=== PATIENT | male | born 1985 | race Caucasian/White ===

== ENCOUNTER 2018-02-01 13:57 | Emergency (ER) | payer OTHER ==
[2018-02-01 14:05] VITALS: BP 130/85
--- NOTE | 2018-02-01 14:08 | UC ---
Throat Pain/Nasal Anil HPI - HPI Summary HPI Summary: 32 y/o male presents to the urgent care c/o sore throat for the past 2 days. Pt states his son was Dx w/ strep this morning. Pain w/ swallowing is 4/10. He has taking Ibuprofen PO 600mg PO to alleviate symptoms. Pt also states chills, mild nasal congestion w/ clear nasal discharge and a dry cough. Pt denies fever , SOB, chest pain, abdominal pain, N/V/D. - History of Current Complaint Chief Complaint: UCRespiratory Stated Complaint: SORE THROAT Time Seen by Provider: 02/01/18 14:06 Hx Obtained From: Patient Onset/Duration: Gradual Onset, Lasting Days - 2 days, Still Present, Worse Since - today Severity: Moderate Pain Intensity: 4 Pain Scale Used: 0-10 Numeric Cough: Nonproductive Associated Signs & Symptoms: Positive: Dysphagia, Nasal Discharge - clear, Other - dry cough. Negative: Fever - Epiglottits Risk Factors Epiglottis Risk Factors: Negative - Allergies/Home Medications Allergies/Adverse Reactions: Allergies Allergy/AdvReac Type Severity Reaction Status Date / Time No Known Allergies Allergy Verified 02/01/18 14:05 PMH/Surg Hx/FS Hx/Imm Hx Previously Healthy: Yes - Pt denies PMHX - Surgical History Surgical History: None - Family History Known Family History: Positive: None - Pt denies FMHX - Social History Occupation: Employed Full-time Lives: With Family Alcohol Use: None Substance Use Type: None Smoking Status (MU): Heavy Every Day Tobacco Smoker Amount Used/How Often: 8/day Review of Systems Constitutional: Chills Skin: Negative Eyes: Negative ENT: Sore Throat, Nasal Discharge, Sinus Congestion Respiratory: Cough - dry Cardiovascular: Negative Gastrointestinal: Negative Genitourinary: Negative Motor: Negative Neurovascular: Negative Musculoskeletal: Negative Neurological: Negative Psychological: Negative Is Patient Immunocompromised?: No All Other Systems Reviewed And Are Negative: Yes Physical Exam - Summary Physical Exam Summary: VITAL SIGNS: Reviewed. GENERAL: Patient is a well developed and nourished male who is sitting comfortable in the examining table. Patient is not in any acute respiratory distress. HEAD AND FACE: No signs of trauma. No ecchymosis, hematomas or skull depressions. No sinus tenderness. EYES: PERRLA, EOMI x 2, No injected conjunctiva, no nystagmus. No photophobia. EARS: Hearing grossly intact. Ear canals and tympanic membranes are within normal limits. MOUTH: Positive pharynx with erythema, exudates, palatal petechiae. B/L tonsillar enlargement with exudate. Uvula in midline. NECK: Supple, trachea is midline, Positive anterior cervical lymphadenopathy, no JVD, no carotid bruit, no c-spine tenderness, neck with full ROM. No meningeal signs, no Kernig's or brudzinskis signs. CHEST: Symmetric, no tenderness at palpation LUNGS: Clear to auscultation bilaterally. No wheezing or crackles. CVS: Regular rate and rhythm, S1 and S2 present, no murmurs or gallops appreciated. ABDOMEN: Soft, non-tender. No signs of distention. No rebound no guarding, and no masses palpated. Bowel sounds are normal. EXTREMITIES: FROM in all major joints, no edema, no cyanosis or clubbing. NEURO: Alert and oriented x 3. No acute neurological deficits. Speech is normal and follows commands. SKIN: Dry and warm Triage Information Reviewed: Yes Vital Signs: Initial Vital Signs Temp 98.3 F 02/01/18 14:03 Pulse 66 02/01/18 14:03 Resp 18 02/01/18 14:03 BP 130/85 02/01/18 14:03 Pulse Ox 99 02/01/18 14:03 Throat Pain/Nasal Course/Dx - Course Course Of Treatment: 32 y/o male presents to the urgent care c/o sore throat for the past 2 days. Pt states his son was Dx w/ strep this morning. Pain w/ swallowing is 4/10. He has taking Ibuprofen PO 600mg PO to alleviate symptoms. Pt also states chills, mild nasal congestion w/ clear nasal discharge and a dry cough. Pt denies fever, SOB, chest pain, abdominal pain, N/V/D.Hx obtained. Pt w / pharyngitis on examination. Rapid strep ordered: result: negative. Viral pharyngitis. Rx Ibuprofen PO for pain and swelling. PT Advised on hand washing to avoid spreading. Also advised to rest, eat well and avoid strenuous exercise. If symptoms do not improve or worsen advised to return to the urgent care or f/u with PCP for further evaluation and treatment. PT understood and agreed - Differential Dx/Diagnosis Differential Diagnosis/HQI/PQRI: Laryngitis, Mononucleosis, Pharyngitis, Sinusitis, Tonsillitis, URI Provider Diagnoses: 1- Viral pharyngtis Discharge - Sign-Out/Discharge Documenting (check all that apply): Discharge/Admit/Transfer - D/C home - Discharge Plan Condition: Stable Disposition: HOME Prescriptions: Ibuprofen TAB* [Motrin TAB* 600 MG] 600 mg PO Q6H PRN #30 tab PRN Reason: Sore Throat Patient Education Materials: Pharyngitis (ED) Forms: *Work Release Referrals: [facility] [place] [facility] [Outside] - 3 Days Additional Instructions: 1-Please take ibuprofen PO q6-8hrs prn as instructed after meals to alleviate pain and swelling. Increase fluid intake, eat well, rest and avoid strenuous exercise. Encourage hand washing. 2-If symptoms do not improve or worsen please return to the urgent care or f/u with your PCP 2- 3 days for further evaluation and treatment. - Billing Disposition and Condition Condition: STABLE Disposition: Home
== END 2018-02-01 14:35 | disposition home or self-care (01) ==
LOC: UCEAST 13:57
DX: J02.8 Acute pharyngitis due to other specified organisms (principal); J34.89 Other specified disorders of nose and nasal sinuses; F17.210 Nicotine dependence, cigarettes, uncomplicated
CPT/HCPCS: 87651; 99212; G0463

== ENCOUNTER 2018-06-11 13:41 | Emergency (ER) | payer OTHER ==
[2018-06-11 13:48] VITALS: BP 141/80
--- NOTE | 2018-06-11 14:16 | UC ---
Respiratory Complaint HPI - HPI Summary HPI Summary: 32 y/o male presents to the urgent care c/o cough, cold symptoms for two weeks, left ear plugged for a week - feels dizzy at times because of his ear. afebrile. sometimes feels chest congestion at night. some productive - History of Current Complaint Chief Complaint: UCRespiratory Stated Complaint: RESP COMPLAINT Time Seen by Provider: 06/11/18 14:09 Hx Obtained From: Patient Onset/Duration: Gradual Onset, Lasting Weeks - 2 weeks, Still Present, Worse Since - 2 days Timing: Constant Severity Initially: Mild Severity Currently: Moderate Pain Intensity: 6 - touch Pain Scale Used: 0-10 Numeric Character: Cough: Nonproductive Aggravating Factors: Recumbent Position Alleviating Factors: OTC Meds Associated Signs And Symptoms: Positive: URI, Nasal Congestion, Sinus Discomfort. Negative: Fever, Chills - Risk Factors Pulmonary Embolism Risk Factors: Negative Cardiac Risk Factors: Negative Pseudomonas Risk Factors: Negative Tuberculosis Risk Factors: Negative - Allergies/Home Medications Allergies/Adverse Reactions: Allergies Allergy/AdvReac Type Severity Reaction Status Date / Time No Known Allergies Allergy Verified 06/11/18 13:48 Home Medications: Home Medications D-Methorphan/PE/Acetaminophen [Day Time Cold-Flu Liquid] 1 dose PO ONCE PRN [History Confirmed 06/11/18] PMH/Surg Hx/FS Hx/Imm Hx Previously Healthy: Yes - Pt denies PMHX - Surgical History Surgical History: None - Family History Known Family History: Positive: None - Pt denies FMHX - Social History Occupation: Employed Full-time Lives: With Family Alcohol Use: None Substance Use Type: None Smoking Status (MU): Heavy Every Day Tobacco Smoker Amount Used/How Often: 8/day Household Exposure Type: Cigarettes Review of Systems Constitutional: Negative Skin: Negative Eyes: Negative ENT: Ear Ache - left ear pain, Nasal Discharge - green, Sinus Congestion - green , Sinus Pain/Tenderness, Other - +PND Respiratory: Cough - cough Cardiovascular: Negative Gastrointestinal: Negative Genitourinary: Negative Motor: Negative Neurovascular: Negative Musculoskeletal: Negative Neurological: Negative Psychological: Negative Is Patient Immunocompromised?: No All Other Systems Reviewed And Are Negative: Yes Physical Exam - Summary Physical Exam Summary: Vitals: reviewed General: Well developed, well-nourished male patient with NAD. Head and face: Normocephalic and atraumatic, Positive tenderness over the frontal and maxillary sinuses.. Eyes: PERRLA, EOMI x 2. Normal conjunctiva. No eye discharge. ENT: B/L external ear canal impacted w/ cerumen unable to visualize TM's Nose: edematous and erythematous nasal mucosa with with yellowish discharge and erythematous mucosa. Pharynx with erythema, no exudate. Neck: Supple, no JVD, no carotid bruits and no lymphadenopathy. Lungs: clear, no rales, no rhonchi, no wheezes. CVS: RRR, S1 and S2 present no murmurs or gallops appreciated. Abdomen: soft nontender with positive bowel sounds. Extremities: no edema noted. Neuro: WNL. Skin: warm and dry Triage Information Reviewed: Yes Vital Signs: Initial Vital Signs Temp 99.2 F 06/11/18 13:45 Pulse 75 06/11/18 13:45 Resp 20 06/11/18 13:45 BP 141/80 06/11/18 13:45 Pulse Ox 100 06/11/18 13:45 UC Diagnostic Evaluation - Laboratory O2 Sat by Pulse Oximetry: 100 Respiratory Course/Dx - Differential Dx/Diagnosis Differential Diagnosis/HQI/PQRI: Bronchitis, Influenza, Laryngitis, Sinusitis, Other - otitits media or externa, Cerume impaction Provider Diagnoses: 1- Acute bacterial sinusitis. 2- B/L ear Cerumen Impaction. 3-Left otitis Media. 4- Elevated BP w/o Hx of HTN Discharge - Sign-Out/Discharge Documenting (check all that apply): Patient Departure - D/c home All imaging exams completed and their final reports reviewed: No Studies - Discharge Plan Condition: Stable Disposition: HOME Prescriptions: Amoxicillin/Clavulanate TAB* [Augmentin TAB 875*] 875 mg PO BID #20 tab Fluticasone NASAL SPRAY 50MCG* [Flonase NASAL SPRAY 50MCG*] 2 spray BOTH NARES DAILY #1 btl Patient Education Materials: Sinusitis (ED), Ear Infection (ED), Low-Sodium Diet (ED) Forms: *Work Release Referrals: [facility] [place] [facility] [Outside] - 3 Days Additional Instructions: 1- Please increase fluid intake and rest. take full course of antibiotic to avoid resistance 2-Use Flonase as directed to help drain fluid. Also buy saline drops to clear sinuses 3-Return to the clinic or PCP in 3 days if symptoms do not improve for further management and treatment 4-Your BP is elevated today. please decrease salt in your diet, monitor BP and if it continues to be elevated please f/u with your PCP for further management - Billing Disposition and Condition Condition: STABLE Disposition: Home
== END 2018-06-11 15:00 | disposition home or self-care (01) ==
LOC: UCEAST 13:41
DX: J01.90 Acute sinusitis, unspecified (principal); H61.23 Impacted cerumen, bilateral; H66.92 Otitis media, unspecified, left ear; R03.0 Elevated blood-pressure reading, without diagnosis of hypertension; F17.200 Nicotine dependence, unspecified, uncomplicated
CPT/HCPCS: 99213; G0463

== ENCOUNTER 2018-11-29 04:19 | Emergency (ER) | payer OTHER ==
[2018-11-29 04:50] LABS: Rapid Strep Molecular POSITIVE (Negative)
--- NOTE | 2018-11-29 04:51 | ED ---
HPI Febrile Illness - HPI Summary HPI Summary: The patient is a 33 y/o M presenting to [facility] with a chief complaint of fever of 104F, chills, sore throat, nausea, vomiting with blood, and ear pain starting yesterday morning. He denies diarrhea and cough. The fever was not alleviated by cold soaks. The pain is currently rated 10/10 in severity. He reports that someone in the house was recently diagnosed with strep throat. - History of Current Complaint Chief Complaint: EDFluSymptoms Time Seen by Provider: 11/29/18 04:38 Hx Obtained From: Patient Onset/Duration: Started Hours Ago, Still Present Timing: Lasting Hours Initial Severity: Moderate Current Severity: Moderate Pain Intensity: 10 Pain Scale Used: 0-10 Numeric Aggravating Factors: Nothing Alleviating Factors: Nothing Associated Signs and Symptoms: Chills, Nausea, Vomiting - with blood, Other: - POSITIVE: ear pain, sore throat; NEGATIVE: chills, cough, diarrhea - Allergy/Home Medications Allergies/Adverse Reactions: Allergies Allergy/AdvReac Type Severity Reaction Status Date / Time No Known Allergies Allergy Verified 06/11/18 13:48 PMH/Surg Hx/FS Hx/Imm Hx Endocrine/Hematology History: Denies: Hx Diabetes, Hx Thyroid Disease Cardiovascular History: Denies: Hx Hypertension Respiratory History: Denies: Hx Asthma, Hx Chronic Obstructive Pulmonary Disease (COPD) GI History: Denies: Hx Ulcer - Surgical History Surgery Procedure, Year, and Place: none Infectious Disease History: No Infectious Disease History: Denies: Hx Hepatitis, Hx Human Immunodeficiency Virus (HIV), Traveled Outside the [place] in Last 30 Days - Family History Known Family History: Negative: Cardiac Disease, Hypertension - Social History Lives: With Family Alcohol Use: None Hx Substance Use: No Substance Use Type: Reports: None Hx Tobacco Use: Yes Smoking Status (MU): Heavy Every Day Tobacco Smoker Amount Used/How Often: 8/day Review of Systems Positive: Fever - 104F, Chills Positive: Sore Throat, Ear Ache Negative: Cough Positive: Vomiting - with blood, Nausea. Negative: Diarrhea All Other Systems Reviewed And Are Negative: Yes Physical Exam - Summary Physical Exam Summary: Appearance: Nontoxic appearing man with a fever but no acute distress, Well- nourished, lying in bed comfortably Skin: Warm, dry, no obvious rash Eyes: sclera anicteric, no conjunctival pallor ENT: mucous membranes moist, Pharynx is swollen and purulent Neck: Supple, nontender Respiratory: Clear to auscultation, no signs of respiratory distress Cardiovascular: Normal S1, S2. No murmurs. Normal distal pulses in tibial and radial bilaterally. Abdomen: Soft, nontender, normal active bowel sounds present Musculoskeletal: Normal, Strength/ROM Intact Neurological: A&Ox3, awake and alert, mentation is normal, speech is fluent and appropriate Psychiatric: affect is normal, does not appear anxious or depressed Triage Information Reviewed: Yes Vital Signs On Initial Exam: Initial Vitals Temp Pulse Resp BP Pulse Ox 101.8 F 129 18 130/74 94 11/29/18 04:21 11/29/18 04:21 11/29/18 04:21 11/29/18 04:21 11/29/18 04:21 Vital Signs Reviewed: Yes Diagnostics - Vital Signs Vital Signs Temp Pulse Resp BP Pulse Ox 11/29/18 04:21 101.8 F 129 18 130/74 94 - Laboratory Lab Statement: Any lab studies that have been ordered have been reviewed, and results considered in the medical decision making process. Re-Evaluation - Re-Evaluation First Eval Re-Evaluation Time: 05:15 Change: Unchanged Comment: I spoke with the patient concerning lab results and discharge home. Course/Dx - Course Course Of Treatment: The patient is a 33 y/o M with a chief complaint of fever of 104F, chills, sore throat, nausea, vomiting with blood, and ear pain starting yesterday morning. Denies diarrhea and cough. Recently exposed to strep throat. Upon physical exam, the patient is a nontoxic appearing man with a fever but in no acute distress; pharynx is swollen and purulent. In the ED course, the patient was administered Tylenol and Penicillin. Serology reveals positive strep throat and negative flu tests. He is diagnosed with strep throat. He will be discharged home with prescription for Penicillin. He will follow up with PCP if necessary. He agrees with this plan and understands the need for return to the ED for any new or worsening symptoms. - Diagnoses Provider Diagnoses: Strep throat Discharge - Sign-Out/Discharge Documenting (check all that apply): Patient Departure - Patient will be discharged home. Patient Received Moderate/Deep Sedation with Procedure: No - Discharge Plan Condition: Fair Disposition: HOME Prescriptions: Penicillin VK TAB* [Penicillin VK 250 mg Tab*] 500 mg PO QID 10 Days #40 tab Patient Education Materials: Strep Throat (ED) Forms: *Work Release Referrals: [facility] [place] [facility] [Outside] - 3 Days Additional Instructions: Follow up with your primary care provider in 2-3 days if necessary. RETURN TO THE EMERGENCY DEPARTMENT FOR ANY NEW OR WORSENING SYMPTOMS. - Billing Disposition and Condition Condition: FAIR Disposition: Home - Attestation Statements Document Initiated by Renard: Yes Documenting Scribe: Meggan Varghese Provider For Whom Renard is Documenting (Include Credential): Dr. Mir Avelar MD Scribe Attestation: Meggan Escalona scribed for Dr. Mir Avelar MD on 11/29/18 at 0658. Scribe Documentation Reviewed: Yes Provider Attestation: The documentation as recorded by the Meggan vazquez accurately reflects the service I personally performed and the decisions made by me, Dr. Mir Avelar MD Status of Scribe Document: Viewed
[2018-11-29] MEDS ORDERED: Penicillin VK TAB* 250 MG PO ONE (04:57)
[2018-11-29 05:00] LABS: Influenza A Molecular NEGATIVE (Negative); Influenza B Molecular NEGATIVE (Negative)
[2018-11-29] MEDS ORDERED: Acetaminophen TAB* 325 MG PO ONE (05:00)
[2018-11-29 05:26] VITALS: BP 124/73
== END 2018-11-29 05:25 | disposition home or self-care (01) ==
LOC: ED 04:19
DX: J02.0 Streptococcal pharyngitis (principal); F17.210 Nicotine dependence, cigarettes, uncomplicated
CPT/HCPCS: 87651; 99283; A9270-GY

== ENCOUNTER 2018-12-18 12:48 | Emergency (ER) | payer OTHER ==
[2018-12-18 13:04] VITALS: BP 126/70
--- NOTE | 2018-12-18 13:04 | UC ---
Throat Pain/Nasal Anil HPI - HPI Summary HPI Summary: CHIEF COMPLAINT and HPI: This is a 33 yo male with sore throat for 2 days. Treated for positive strep in ED on week ago. Temp then 101.8. Today 98.8. Patient is a smoker. No significant PMH beyond intermittent strep pharyngitis. Location: throat Intensity: moderate Radiation: none Course: constant VITAL SIGNS & SaO2 REVIEWED. Within normal limits unless noted. NURSES NOTE REVIEWED. "stopped abx 1 week ago for strept arrives with soar throat x 2 days" - History of Current Complaint Stated Complaint: SORE THROAT Time Seen by Provider: 12/18/18 12:55 - Allergies/Home Medications Allergies/Adverse Reactions: Allergies Allergy/AdvReac Type Severity Reaction Status Date / Time No Known Allergies Allergy Verified 12/18/18 13:04 PMH/Surg Hx/FS Hx/Imm Hx - Additional Past Medical History Additional PMH: PAST MEDICAL HISTORY- intermittent strep throat over past 4 years. No admissions for medical or surgical conditions. CHRONIC and RECURRENT HEALTH PROBLEM LIST REVIEWED. Information relevant to present complaint: strep pharyngitis. VISIT HISTORY REVIEWED: sore throat. MEDICATIONS & ALLERGIES REVIEWED. HYPERTENSION STATUS: no meds. FAMILY HISTORY: Positive for: Patient denies family history of: hypertension, cardiovascular disease, stroke, diabetes, cancer. 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 Previously Healthy: Yes - Surgical History Surgical History: None Surgery Procedure, Year, and Place: none - Family History Known Family History: Positive: None - Pt denies FMHX Negative: Cardiac Disease, Hypertension - Social History Alcohol Use: None Substance Use Type: None Smoking Status (MU): Heavy Every Day Tobacco Smoker Amount Used/How Often: 8/day Household Exposure Type: Cigarettes Review of Systems All Other Systems Reviewed And Are Negative: Yes Constitutional: Positive: Negative. Negative: Fever Skin: Positive: Negative ENT: Positive: Sore Throat Respiratory: Positive: Negative. Negative: Shortness Of Breath Cardiovascular: Positive: Negative. Negative: Palpitations Gastrointestinal: Positive: Negative. Negative: Abdominal Pain Is Patient Immunocompromised?: No Physical Exam - Summary Physical Exam Summary: Appearance: The patient is well-appearing, is in no pain or distress, and is well-nourished. Eyes: Conjunctiva are clear. Pupils are equal and reactive to light and accommodation. Extra ocular muscle movement is intact. Throat examination shows mild erythema and tonsillar swelling. No exudate. No cervical adenopathy. ENT: The hearing is grossly normal, and the TMs are normal. There is no muffled or hoarse voice. No stridor. Neck: The neck is supple and there is no lymphadenopathy. Respiratory: The chest is non-tender to palpation and without crepitus. The lungs are clear, there are normal breath sounds, and there is no respiratory distress. No wheezes, rales or rhonchi. Cardiovascular: Heart sounds reveal a regular rate and rhythm. There are no clicks, rubs or murmurs. There are no carotid bruits or thrills. Circulation is grossly intact. Abdomen: The abdomen is soft and nontender. There is no organomegaly. Bowel sounds are present and within normal limits. No point tenderness at McBurneys point. No CVA tenderness. Musculoskeletal: Strength is intact. The patient moves all extremities. Neurological: The patient is alert. Motor and sensory are examination grossly intact. Speech is normal. Psychological: The patient displays age appropriate behavior, and is conversant. GCS=15. Skin: Negative for rashes. Throat Pain/Nasal Course/Dx - Course Course Of Treatment: MEDICAL DECISION MAKING and PLAN: This is a 33 yo male with sore throat for 2 days. Treated for positive strep in ED on week ago. Temp then 101.8. Today 98.8. Patient is a smoker. No significant PMH beyond intermittent strep pharyngitis. Throat examination shows mild erythema and tonsillar swelling. No exudate. No cervical adenopathy. Strep is positive. Dx is strep tonsillitis. Perhaps a carrier. Will start on Keflex, and patient will follow up. MEDICATIONS REVIEWED. HYPERTENSION STATUS REVIEWED WITH PATIENT IF blood pressure is above 120/80. 126/70. Patient is urgent/emergent causing transient blood pressure elevation. . Patient will follow up with PMD within 4 weeks for elevated BP. - Differential Dx/Diagnosis Differential Diagnosis/HQI/PQRI: Laryngitis, Mononucleosis, Peritonsillar Abscess, Pharyngitis, Tonsillitis, URI Provider Diagnosis: Strep pharyngitis Discharge - Sign-Out/Discharge Documenting (check all that apply): Patient Departure All imaging exams completed and their final reports reviewed: No Studies - Discharge Plan Condition: Stable Disposition: HOME Prescriptions: Cephalexin CAP* [Keflex 500 CAP*] 500 mg PO BID #20 cap MDD 2 Patient Education Materials: Strep Throat (DC) Referrals: No Primary Care Phys,NOPCP [Primary Care Provider] - Additional Instructions: WE DISCUSSED: PLEASE SEEK CARE AT THE EMERGENCY DEPARTMENT IF SYMPTOMS WORSEN OR IF NEW SYMPTOMS DEVELOP. FOLLOW UP WITH YOUR PRIMARY CARE PHYSICIAN IF CONDITION CONTINUES BEYOND 3 DAYS WITHOUT IMPROVEMENT. YOUR DIAGNOSIS IS: STREP THROAT YOUR PRESCRIPTION RECOMMENDATION IS: KEFLEX , 500MG, TWICE A DAY FOR 10 DAYS OTHER INSTRUCTIONS: Hypertension Discharge Instructions: Your blood pressure reading today was 126/70. This is a slightly high reading. Check your blood pressure over the next month. It should be 120/80 or below. FOR PAIN AND/OR SLEEP: For pain: Ibuprofen (Motrin and other brand names) 400-600mg PLUS acetaminophen (Tylenol and other brand names) 500mg - 1000mg every 8 hours. Warm tea and honey; salt water garbles and lozenges will help with the pain. Recheck at anytime or go to ED for increased pain, temperature or difficulty breathing or swallowing. - Billing Disposition and Condition Condition: STABLE Disposition: Home
== END 2018-12-18 13:45 | disposition home or self-care (01) ==
LOC: UCEAST 12:48
DX: J02.0 Streptococcal pharyngitis (principal); R03.0 Elevated blood-pressure reading, without diagnosis of hypertension; F17.200 Nicotine dependence, unspecified, uncomplicated
CPT/HCPCS: 87651; 99212; G0463

== ENCOUNTER 2019-02-01 21:01 | Emergency (ER) | payer OTHER ==
[2019-02-01 21:15] VITALS: BP 113/76
--- NOTE | 2019-02-01 21:45 | UC ---
Throat Pain/Nasal Anil HPI - HPI Summary HPI Summary: 33 y/o male presents to the urgent care c/o sore throat and light headiness for the past 2 days. Pt reports Hx of strep 2X in the past 2 months. Pain w/ swallowing is 6/10. He Took Tylenol PO this morning alleviate symptoms. Pt has been drinking fluids and eating well. This morning he noticed some white spots on his tonsils which are enlarged. Pt denies fever, BROWN, SOB, chest pain, abdominal pain, N/v/d. - History of Current Complaint Chief Complaint: UCGeneralIllness Stated Complaint: SORE THROAT Time Seen by Provider: 02/01/19 21:43 Pain Intensity: 6 - Allergies/Home Medications Allergies/Adverse Reactions: Allergies Allergy/AdvReac Type Severity Reaction Status Date / Time No Known Allergies Allergy Verified 02/01/19 21:16 Home Medications: Home Medications Acetaminophen TAB* [Tylenol TAB*] 975 mg PO Q4H PRN 02/01/19 [History Confirmed 02/01/19] Pheniramine/P-Eph/Acetaminophn [Theraflu Flu & Sore Throat] 1 shahid PO Q6H [History Confirmed 02/01/19] PMH/Surg Hx/FS Hx/Imm Hx - Surgical History Surgical History: None Surgery Procedure, Year, and Place: none - Family History Known Family History: Positive: None - Pt denies FMHX Negative: Cardiac Disease, Hypertension - Social History Alcohol Use: None Substance Use Type: None Smoking Status (MU): Light Every Day Tobacco Smoker Amount Used/How Often: 8/day Household Exposure Type: Cigarettes Physical Exam Vital Signs: Initial Vital Signs Temp 99.6 F 02/01/19 21:11 Pulse 92 02/01/19 21:11 Resp 16 02/01/19 21:11 BP 113/76 02/01/19 21:11 Pulse Ox 97 02/01/19 21:11 Throat Pain/Nasal Course/Dx - Course Course Of Treatment: 33 y/o male presents to the urgent care c/o sore throat and light headiness for the past 2 days. Pt reports Hx of strep 2X in the past 2 months. Pain w/ swallowing is 6/10. He Took Tylenol PO this morning alleviate symptoms. Pt has been drinking fluids and eating well. This morning he noticed some white spots on his tonsils which are enlarged. Pt denies fever, BROWN, SOB, chest pain, abdominal pain, N/v/d. Hx obtained. Pt is hemodynamically stable , A&OX3 w/ tonsillitis on examination. Rapdi strep: negative. Throat culture and Monospot ordered and sent to lab. Pt will be notified of any abnormality for further management. Pt givne Ibuprofen and Prednisone PO to alleviate symptoms. Pt tolerated well medication and felt better. Pt Rx ibuprofen PO and Prednsione PO as directed below to alleviates symptoms of pain and swelling. Advised on hand washing to avoid spreading. Pt advised to rest, eat well and avoid strenuous exercise. If symptoms do not improve or worsen advised to return to the urgent care or f/u with PCP in 3 days for further evaluation and treatment. Pt understood and agreed w/ plan of care. - Differential Dx/Diagnosis Differential Diagnosis/HQI/PQRI: Laryngitis, Mononucleosis, Pharyngitis, Tonsillitis, URI Provider Diagnosis: Acute tonsillitis Discharge - Discharge Plan Prescriptions: Ibuprofen TAB* [Motrin TAB* 800 MG] 800 mg PO Q6H PRN #30 tab PRN Reason: Sore Throat predniSONE TAB* [Deltasone 20 MG TAB*] 20 mg PO DAILY #8 tab Patient Education Materials: Tonsillitis (ED) Forms: *Work Release Referrals: [facility] [place] [facility] [Outside] - 3 Days Additional Instructions: 1-Please take ibuprofen PO q6-8hrs prn as instructed after meals to alleviate pain and swelling. Increase fluid intake, eat well, rest and avoid strenuous exercise 2-Please take Prednisone PO as directed to alleviate symptoms starting tomorrow. First dose given tonight. 3-CBC , Mononucleosis and throat culture was sent to lab. You will be notified of any abnormality 4-If symptoms do not improve or worsen please return to the urgent care or f/u with your PCP in 3 days for further evaluation and treatment.
[2019-02-01] MEDS ORDERED: Ibuprofen TAB* 400 MG PO ONE (21:55)
[2019-02-01] MEDS ORDERED: predniSONE TAB* 20 MG PO ONE (21:55)
[2019-02-02 11:52] LABS: Hematocrit 50 % (42-52); Mean Corpuscular HGB Conc 34 g/dL (31-36); Mean Corpuscular Hemoglobin 31 pg (27-31); Mean Corpuscular Volume 92 fL (80-94); Mean Platelet Volume 11.4 fL (7.4-10.4); Platelet Count 170 10^3/uL (150-450); Red Blood Count 5.48 10^6 /uL (4.18-5.48); Red Cell Distribution Width 14 % (10-15); White Blood Count 16.7 10^3/uL (3.5-10.8)
[2019-02-02 12:43] LABS: ABS Basophils 0.1 10^3/ul (0-0.2); ABS Eosinophils 0.2 10^3/ul (0-0.6); ABS Monocytes 1.2 10^3/ul (0-0.8); ABS Neutrophils 13.3 10^3/ul (1.5-7.7); Eosinophil % 1.1 %; Lymphocyte % 11.7 %; Nucleated Red Blood Cells % 0.1
--- NOTE | 2019-02-02 15:26 | UC ---
- Progress Note Progress Note: please notify pt [place] test negative White count elevated (16.7) If worse should be rechecked (if unable to tolerate liquids should go to ER) Course/Dx - Diagnoses Provider Diagnoses: Acute tonsillitis Discharge - Sign-Out/Discharge Documenting (check all that apply): Post-Discharge Follow Up All imaging exams completed and their final reports reviewed: No Studies - Discharge Plan Condition: Good Disposition: HOME Prescriptions: Ibuprofen TAB* [Motrin TAB* 800 MG] 800 mg PO Q6H PRN #30 tab PRN Reason: Sore Throat predniSONE TAB* [Deltasone 20 MG TAB*] 20 mg PO DAILY #8 tab Patient Education Materials: Tonsillitis (ED) Forms: *Work Release Referrals: [facility] [place] [facility]ERR[facility] [Outside] - 3 Days Additional Instructions: 1-Please take ibuprofen PO q6-8hrs prn as instructed after meals to alleviate pain and swelling. Increase fluid intake, eat well, rest and avoid strenuous exercise 2-Please take Prednisone PO as directed to alleviate symptoms starting tomorrow. First dose given tonight. 3-CBC , Mononucleosis and throat culture was sent to lab. You will be notified of any abnormality 4-If symptoms do not improve or worsen please return to the urgent care or f/u with your PCP in 3 days for further evaluation and treatment. - Billing Disposition and Condition Condition: GOOD Disposition: Home
[2019-02-03 14:00] LABS: EBV Capsid Ag IgG Ab Positive (Negative); EBV Capsid Ag IgM Ab Negative (Negative); Epstein-Barr Nuclear Antigen Positive (Negative)
== END 2019-02-01 22:33 | disposition home or self-care (01) ==
LOC: UCEAST 21:01
DX: J03.90 Acute tonsillitis, unspecified (principal); F17.210 Nicotine dependence, cigarettes, uncomplicated
CPT/HCPCS: 36415; 85025; 86308; 86664; 86665; 87070; 87651; 99212; A9270-GY; G0463; J7512

== ENCOUNTER 2019-09-15 13:35 | Emergency (ER) | payer OTHER | END 2019-09-15 15:09 | disposition left against medical advice (07) | LOC: UCEAST 13:35 | DX: Z53.21 Procedure and treatment not carried out due to patient leaving prior to being seen by health care provider (principal) ==

== ENCOUNTER 2019-09-15 21:33 | Emergency (ER) | payer OTHER ==
[2019-09-15 21:41] VITALS: BP 140/74
[2019-09-15 22:01] LABS: Influenza A Molecular Negative (Negative); Influenza B Molecular Negative (Negative)
--- NOTE | 2019-09-15 22:12 | UC ---
FLU HPI - HPI Summary HPI Summary: 6 DAYS OF SORE THROAT, COUGH, CONGESTION, FATIGUE AND ACHINESS. IS CONCERNED ABOUT STREP. - History of Current Complaint Chief Complaint: UCRespiratory Stated Complaint: SORE THROAT Time Seen by Provider: 09/15/19 21:46 Hx Obtained From: Patient Onset/Duration: Gradual Onset, Lasting Days, Still Present Severity Currently: Moderate Severity Initially: Moderate Pain Intensity: 4 Pain Scale Used: 0-10 Numeric Associated Signs & Symptoms: Positive: Fever, Myalgia, Cough, Sore Throat, Nasal Congestion - Allergy/Home Medications Allergies/Adverse Reactions: Allergies Allergy/AdvReac Type Severity Reaction Status Date / Time No Known Allergies Allergy Verified 09/15/19 21:41 PMH/Surg Hx/FS Hx/Imm Hx Previously Healthy: Yes - Surgical History Surgical History: None Surgery Procedure, Year, and Place: none - Family History Known Family History: Positive: None - Pt denies FMHX Negative: Cardiac Disease, Hypertension - Social History Alcohol Use: None Substance Use Type: None Smoking Status (MU): Light Every Day Tobacco Smoker Amount Used/How Often: 8/day Household Exposure Type: Cigarettes Review of Systems All Other Systems Reviewed And Are Negative: Yes Constitutional: Positive: Fever, Fatigue ENT: Positive: Sore Throat, Nasal Discharge Respiratory: Positive: Cough Cardiovascular: Positive: Negative Gastrointestinal: Positive: Negative Musculoskeletal: Positive: Myalgia Physical Exam Triage Information Reviewed: Yes Appearance: No Pain Distress, Well-Nourished, Ill-Appearing - FATIGUED Vital Signs: Initial Vital Signs Temp 100.8 F 09/15/19 21:37 Pulse 95 09/15/19 21:37 Resp 18 09/15/19 21:37 BP 140/74 09/15/19 21:37 Pulse Ox 95 09/15/19 21:37 Laboratory Tests 09/15/19 09/15/19 21:47 21:50 Influenza A (Rapid) Negative Influenza B (Rapid) Negative Group A Strep Rapid Negative Vital Signs Reviewed: Yes Eyes: Positive: Conjunctiva Clear ENT: Positive: Hearing grossly normal, Pharyngeal erythema, TMs normal. Negative: Tonsillar swelling, Tonsillar exudate Neck: Positive: Supple, Nontender, No Lymphadenopathy Respiratory Exam: Normal Cardiovascular Exam: Normal Abdomen Description: Positive: Soft Musculoskeletal: Positive: No Edema Neurological: Positive: Alert Psychological: Positive: Age Appropriate Behavior Skin: Negative: Rashes Flu Course/Dx - Course Course Of Treatment: STREP NEGATIVE. FLU NEGATIVE. LIKELY VIRALLY MEDIATED SYMPTOMS THAT SHOULD RESOLVE ON THEIR OWN WITH TIME. REST, HYDRATE, OTC MEDS NEEDED. - Differential Dx/Diagnosis Provider Diagnosis: Flu-like symptoms Discharge ED - Sign-Out/Discharge Documenting (check all that apply): Patient Departure All imaging exams completed and their final reports reviewed: No Studies - Discharge Plan Condition: Stable Disposition: HOME Patient Education Materials: Viral Syndrome (ED) Forms: *Work Release Referrals: [facility] [place] [Outside] - If Needed Additional Instructions: STREP NEGATIVE. FLU NEGATIVE. DESPITE THIS RESULT YOUR SYMPTOMS ARE FLU-LIKE AND PROBABLY VIRALLY MEDIATED AND SHOULD RESOLVE ON THEIR OWN WITH TIME. NO INDICATION FOR ANTIBIOTICS AT PRESENT. REST, HYDRATE, OTC MEDS NEEDED. SEEK FOLLOW-UP IF YOU ARE NOT IMPROVING OVER THE NEXT 1-2 WEEKS. USE OTC AFRIN FOR NASAL CONGESTION IF NEEDED. 2 SPRAYS IN EACH NOSTRIL TWICE DAILY NEEDED. DO NOT USE FOR MORE THAN 3-4 DAYS IN A ROW TO PREVENT DEVELOPING REBOUND CONGESTION. CALL THE NUMBER BELOW FOR ASSISTANCE IN ESTABLISHING WITH A PCP An additional resource available to assist in finding the appropriate physician for your health care needs is the [facility] ([facility]). You may contact them by calling [phone]. - Billing Disposition and Condition Condition: STABLE Disposition: Home
== END 2019-09-15 22:10 | disposition home or self-care (01) ==
LOC: UCEAST 21:33
DX: J02.9 Acute pharyngitis, unspecified (principal); R09.81 Nasal congestion; R53.83 Other fatigue; R50.9 Fever, unspecified; M79.10 Myalgia, unspecified site; R05 Cough; F17.210 Nicotine dependence, cigarettes, uncomplicated
CPT/HCPCS: 87651; 99201; G0463